=== PATIENT | male | born 1965 | race Caucasian/White ===

== ENCOUNTER 2023-06-23 16:48 | Emergency (ER) | payer OTHER, SELFPAY ==
[2023-06-23 16:54] VITALS: BP 145/81; PULSE 86; RESP 16; TEMP 37.2; O2SAT 95
--- NOTE | 2023-06-23 17:16 | ED.URI ---
HPI - URI/Sore Throat General Chief Complaint: Upper Respiratory Infection Stated Complaint: upper respiratory Time Seen by Provider: 06/23/23 17:15 Source: patient, RN notes reviewed and old records reviewed Mode of arrival: ambulatory Limitations: no limitations History of Present Illness HPI Narrative: 58-year-old male who presents to [facility] with complaints of head and chest congestion with drainage for the past 1.5 weeks with expectoration of some greenish tingled phlegm. Patient reports that he has been taking Vicks formula 44 for his symptoms without resolution. Patient reports history of problems with sinuses in the past. Patient reports that he does have some cough but denies any dspnea, respirations nonlabored no tachypnea, SAO2 95% on room air MD elicited complaint: cough, rhinorrhea, nasal congestion and sinus pain Pertinent past history: sinusitis and other (tobacco use) Onset (ago): week(s) (1.5) Consistency: constant Severity: moderate Able to tolerate fluids by mouth: Yes Treatments prior to arrival: other (Vicks 44) Related Data Home Medications Medication Instructions Recorded Confirmed gabapentin 05/20/19 hydrocodone 5 mg-acetaminophen 325 05/20/19 mg tablet albuterol sulfate 2.5 mg/3 mL mg 06/23/23 (0.083 %) solution for nebulization budesonide-formoterol HFA 160 inhalation 06/23/23 mcg-4.5 mcg/actuation aerosol inhaler (Symbicort) Allergies Allergy/AdvReac Type Severity Reaction Status Date / Time No Known Allergies Allergy Unverified 05/20/19 12:25 Review of Systems Review of Systems: CONSTITUTIONAL: Denies malaise, chills, sweats, or fever. EYES: Denies visual changes, redness, or discharge. ENT: Reports rhinorrhea, congestion, sinus pain,no otalgia and no sore throat. CARDIOVASCULAR: Denies chest pain, palpitations, or edema. RESPIRATORY: Reports cough.? Denies dyspnea. expectoration of some greenish tinged mucous GASTROINTESTINAL: Denies abdominal pain, nausea, vomiting, diarrhea SKIN: Denies rash or itching. MUSCULOSKELETAL: Denies myalgia. NEUROLOGIC: Denies headache. All systems reviewed & are unremarkable except as noted in HPI and below PMFSH Past Medical History Medical History (Updated 06/24/23 @ 16:16 by Caryl Auguste NP) Bronchitis Chronic back pain DDD (degenerative disc disease) Sinusitis Surgical History Surgical History (Updated 06/24/23 @ 16:11 by Caryl Auguste NP) History of hip surgery Hx of spinal surgery Social History Social History (Updated 06/24/23 @ 16:10 by Caryl Auguste NP) Smoking packs per day: 1 Smoking cigarettes per day: 20.0 Years smoked: 30 Smoking pack-years: 30.00 Smoking status: Current every day smoker Tobacco type: cigarettes Alcohol intake: current Alcohol use details: social Substance use type: does not use Living arrangements: with family Gender identity (if verbalized by the patient): Male Comments At time of signature, agree with nursing past medical, surgical, social and family history. There is no relevant family history pertinent to the presenting complaint Exam Narrative: GENERAL: Well-appearing, well-nourished, and in no acute distress. HEAD: Normocephalic EYES: PERRLA, conjunctivae clear ENT: Nares clear, turbinates edematous and erythematous, yellowish thick discharge. Mucous membranes moist. TM pearly serna with dull light reflex bilaterally; no tragal tenderness. Oropharynx erythematous without lesions. Tonsils not enlarged and without exudate, no drooling, no hoarseness, no trismus, uvula midline.post nasal discharge NECK: Supple. No lymphadenopathy CHEST: faint scattered wheezes auscultation, breath sounds equal. wheezing, no rhonchi, rales, or stridor. No respiratory distress, speaks in full sentences.cough, SAO2 95% on room air HEART: Regular rate and rhythm. No murmur heard. SKIN: Warm, dry, no rash. NEURO: Alert and orie
== END 2023-06-23 17:36 | disposition home or self-care (01) ==
PROVIDERS: Emergency Provider Registered Nurse
DX: J34.9 Unspecified disorder of nose and nasal sinuses (principal); R05.9 Cough, unspecified; F17.210 Nicotine dependence, cigarettes, uncomplicated
CPT/HCPCS: 99203; G0463